=== PATIENT | female | born 2005 | race Two or more races ===

== ENCOUNTER 2024-03-14 19:40 | Emergency (ER) | payer BC, MEDICAID ==
[~2024-03-14] VITALS: Ht 165.1 cm; Wt 65.0 kg
[2024-03-14 19:52] VITALS: BP 124/76; PULSE 124; RESP 18; O2SAT 97
[2024-03-14] MEDS: ACETAMINOPHEN 500 MG TAB PO ONE (20:02)
[2024-03-14 20:20] LABS: COVID19 ANTIGEN SOFIA FIA NEGATIVE (NEGATIVE); Rapid Influenza B Negative (Negative)
[2024-03-14 20:24] LABS: Rapid Influenza A Positive (Negative)
[2024-03-14] MEDS ORDERED: LORA-622 PO (20:32)
[2024-03-14] MEDS ORDERED: ACET500T58 PO (20:32)
[2024-03-14] MEDS ORDERED: TAMIFLU PO (20:32)
--- NOTE | 2024-03-14 20:32 | ED.PDOC ---
History of Present Illness HPI Comments This patient is a 18-year-old female who arrives the ED today for evaluation of general flu-like symptoms including fever, intermittent nausea and vomiting, generalized body aches and weakness off and on for the past 10 days. Patient denies any recent travel or new food sources. Patient states the symptoms came on and have ebbed and flowed since inception. Patient was febrile and mildly tachycardic at arrival. Chief Complaint: Flu like Time Seen by MD: 19:45 Reviewed Notes: Nurses Notes Allergies: Coded Allergies: NO KNOWN ALLERGIES (Unverified , 03/14/24) Information Source: Patient Mode of Arrival: Ambulatory Severity: Moderate Timing: Days Duration: Since onset Prehospital treatment: Treatment Past Medical History PAST MEDICAL HISTORY: Denies Surgical History: Denies all surgeries VIDEO EDITOR History: No Pertinent VIDEO EDITOR History Family History Family History: Reviewed,noncontributory to illness, No family hx of Cancer, No family hx of DM, No family hx of Heart magdy, No family hx of HTN, No family hx ofKidney magdy, No family hx of Liver magdy, No family hx of Lung magdy, No family hx of Stroke Social History Smoker: Non-Smoker Alcohol: Denies ETOH Use Drugs: Denies Drug Use Lives In: Home Constitutional: reports: fatigue, fever, weakness; denies: chills, diaphoresis, malaise, sweats, others EENTM: denies: blurred vision, double vision, ear bleeding, ear discharge, ear drainage, ear pain, ear ringing, eye pain, eye redness, hearing loss, mouth pain, mouth swelling, nasal discharge, nose bleeding, nose congestion, nose pain, photophobia, tearing, throat pain, throat swelling, voice changes, others Respiratory: denies: cough, hemoptysis, orthopnea, SOB at rest, shortness of breath, SOB with excertion, stridor, wheezing, others Cardiovascular: denies: chest pain, dizzy spells, diaphoresis, Dyspnea on exertion, edema, irregular heart beat, left arm pain, lightheadedness, palpitat ions, PND, syncope, others Gastrointestinal: reports: nausea, vomiting; denies: abdomen distended, abdominal pain, blood streaked bowels, constipated, diarrhea, dysphagia, difficulty swallowing, hematemesis, melena, poor appetite, poor fluid intake, rectal bleeding, rectal pain, others Genitourinary: denies: abnormal vagina bleeding, burning, dyspareunia, dysuria, flank pain, frequency, hematuria, incontinence, pain, , vagina discharge, urgency, others Neurological: denies: dizziness, fainting, headache, left sided numbness, left sided weakness, numbness, paresthesia, pre-existing deficit, right sided numbness, right sided weakness, seizure, speech problems, tingling, tremors, weakness, others Musculoskeletal: denies: back pain, gout, joint pain, joint swelling, muscle pain, muscle stiffness, neck pain, others Integumetry: denies: bruises, change in color, change in hair/nails, dryness, laceration, lesions, lumps, rash, wounds, others Allergic/Immunocompromised: denies: Difficulty Healing, Frequent Infections, Hives, Itching, others Hematologic/Lymphatic: denies: anemia, blood clots, easy bleeding, easy bruising, swollen glands, others Endocrine: denies: excessive hunger, excessive sweating, excessive thirst, excessive urination, flushing, intolerance to cold, intolerance to heat, unexplained weight gain, unexplained weight loss, others Psychiatric: denies: anxiety, bipolar disorder, depression, hopeless, panic disorder, schizophrenia, sleepless, suicidal, others Physical Exam General Appearance: Moderate Distress (Patient presents as a moderately toxic 18-year-old female.), Normal HEENT: Pharynx Normal, TMs Normal, Other ([place]) Neck: Full Range of Motion, Non-Tender, Normal, Normal Inspection Respiratory: Chest Non-Tender, Lungs Clear, No Accessory Muscle Use, No Respiratory Distress, Normal Breath Sounds Cardiovascular: No Edema, No JVD, No Murmur, No Gallop, Normal Peripheral Pulses, Regular Rate/Rhythm Breast Exam: Deferred Gastrointestinal: No Organomegaly, Non Tender, No Pulsatile Mass, Normal Bowel Sounds, Soft Genitalia: Deferred Pelvic: Deferred Rectal: Deferred Extremities: No calf tenderness, Normal capillary refill, Normal inspection, Normal range of motion, Non-tender, No pedal edema Neurologic: Alert, 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 Was a procedure done?: No Differential Dx Considerations may include: COVID 19, influenza a/B, viral illness X-Ray, Labs, Meds, VS Vital Signs Date Time Temp Pulse Resp B/P (MAP) Pulse Ox O2 Delivery O2 Flow Rate FiO2 03/14/24 20:02 100.5 03/14/24 19:52 100.5 124 18 124/76 (92) 97 Lab Test 03/14/24 19:56 Range/Units Influenza Type A Antigen Positive Negative Influenza Type B Antigen Negative Negative SARS-CoV-2 Antigen (Rapid) Negative NEGATIVE Current Medications Medications (Trade) Dose Ordered Sig/Demond Route Start Time Stop Time Status Last Admin Acetaminophen (Tylenol Tablet) 500 mg ONCE ONCE PO 03/14/24 20:00 03/14/24 20:01 DC 03/14/24 20:02 X-Ray, Labs, Meds, VS Comment All studies performed the ED were evaluated by me personally. Patient was positive for influenza A. Advised patient utilize medication as directed as well as additional medication as needed for symptomatic relief. Patient's temperature had reduced to a acceptable range at discharge. Time of 1ST Reevaluation: 20:30 Reevaluation 1ST: Improved Consultation: PCP Patient Education/Counseling: Diagnosis, Treatment Family Education/Counseling: Diagnosis, Treatment Departure 1 Departure Time of Disposition: 20:30 Impression: Primary Impression: Influenza A Disposition: HOME / SELF CARE / HOMELESS Condition: Stable Additional Instructions: Advised patient utilize Tamiflu as directed until completion as well as additional medication as needed. Patient should practice good hydration and healthy nutrition throughout illness event. e-Prescriptions Loratadine (Claritin) 10 Mg Tab 1 TAB PO DAILY for 10 Days, #10 TAB 0 Refills Prov: SHAKIR MCGOWAN PAC 03/14/24 Acetaminophen (Acetaminophen) 500 Mg Tab 500 MG PO Q4HP PRN, #30 TAB Prov: SHAKIR MCGOWAN PAC 03/14/24 Oseltamivir Phosphate (Tamiflu) 75 Mg Cap 75 MG PO BID for 5 Days, #10 CAP Prov: SHAKIR MCGOWAN [facility] 03/14/24 Discharged With: Self, Friend Critical Care Note Critical Care Time?: No Stability Stability form required: No Heart Score Heart Score: Heart Score Response (Comments) Value History N/A 0 EKG N/A 0 Age N/A 0 Risk Factors N/A 0 Troponin N/A 0 Total 0 SHAKIR MCGOWAN PAC Mar 14, 2024 20:32
[2024-03-14 20:40] VITALS: TEMP 99.3
== END 2024-03-14 20:40 | disposition home or self-care (01) ==
LOC: ER 19:40
DX: J10.1 Influenza due to other identified influenza virus with other respiratory manifestations (principal); Z20.822 Contact with and (suspected) exposure to COVID-19
CPT/HCPCS: 36415; 87426; 87804

== ENCOUNTER 2024-09-16 20:13 | Emergency (ER) | payer BC, MEDICAID ==
[~2024-09-16 20:13] MED LIST: ACET500T58 PO; LORA-622 PO; TAMIFLU PO
== END 2024-09-16 21:06 | disposition left against medical advice (07) ==
LOC: ER 20:18
DX: N93.9 Abnormal uterine and vaginal bleeding, unspecified (principal); Z53.21 Procedure and treatment not carried out due to patient leaving prior to being seen by health care provider